=== PATIENT | female | born 1945 ===

== ENCOUNTER 2022-03-21 07:49 | Day surgery (SDC) | payer OTHER ==
[~2022-03-21] VITALS: Ht 152.4 cm; Wt 50.3 kg
[~2022-03-21 07:49] MED LIST: AMLODIP PO; COZAAR100 MG PO; HYDROCHLOROTHIA25 MG PO; SIMVASTA PO; [UNRECOGNIZED DRUG - OTHER] PO
[2022-03-21] MEDS ORDERED: PERCOCET 5-3251 EACH PO (15:35)
== END 2022-03-21 18:30 | disposition home or self-care (01) ==
LOC: CIR.AMB 07:49 → EDBD 08:00 → CIR.AMB 08:00
PROVIDERS: ATTEND Surgery
DX: D35.1 Benign neoplasm of parathyroid gland (principal); E04.1 Nontoxic single thyroid nodule; E21.3 Hyperparathyroidism, unspecified; I10 Essential (primary) hypertension; E78.5 Hyperlipidemia, unspecified; Z20.822 Contact with and (suspected) exposure to COVID-19; Z86.16 Personal history of COVID-19